=== PATIENT | male | born 1965 | race Caucasian/White ===

== ENCOUNTER 2024-07-28 01:05 | Day surgery (SDC) | payer OTHER, SELFPAY ==
[2024-07-14 15:45] VITALS: BMI 23.6
--- OUTSIDE RECORDS SUMMARY | 2024-07-28 01:08 | XMS_ITS | Clinical Summary ---
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 05/05/2022 Social History Tobacco Use Types Packs/Day Years Used Date Smoking Tobacco: Never Smokeless Tobacco: Never Alcohol Use Standard Drinks/Week Comments Yes 0 (1 standard drink = 0.6 oz pur e alcohol) socially Sex and Gender Information Value Date Recorded Sex Assigned at Not on file Legal Sex Male 4:32 PM CDT Gender Identity Not on file Sexual Orientation Not on file Last Filed Vital Signs Vital Sign Reading Time Taken Comments Blood Pressure 157/84 02/01/2021 8:02 AM CDT Pulse 99 02/01/2021 8:02 AM CDT Temperature 36.6 C (97.8 F) 02/01/2021 8:02 AM CDT Respiratory Rate 18 02/01/2021 8:02 AM CDT Oxygen Saturation 99% 02/01/2021 8:02 AM CDT Inhaled Oxygen Concentration - - Weight 77.1 kg (170 lb) 02/01/2021 8:02 AM CDT Height 175.3 cm (5' 9 ) 02/01/2021 8:02 AM CDT Body Mass Index 25.1 02/01/2021 8:02 AM CDT Plan of Treatment Health Maintenance Due Date Last Done Comments Colorectal Cancer Screening Colonoscopy (10 Years) 1963 Annual Physical 10/22/1966 Hepatitis C 10/22/1981 DTaP, Tdap and Td Vaccines ( 1 - Tdap) 10/22/1982 Pneumococcal Vaccine: 50+ Years (1 of 1 - PCV) 10/22/2013 COVID-19 Vaccine (3 - 2023-2 5 season) 2023 11/17/2020, 10/20/2020 RSV Immunization or 60+ Years (1 - 1-dose 75+ series) 10/22/2038 Zoster Vaccines Completed 12/28/2023, 08/04/2021 Meningococcal B Vaccine Aged Out No l onger eligible based on patient's age to complete this topic Meningococcal Vaccine Aged Out No cornelio ki eligible based on patient's age to complete this topic RSV Immunizations Under 20 Months Aged Out No longer eligible b ased on patient's age to complete this topic Insurance [facility] Advance Directives Documents on File Type Date Recorded Patient Physics Technician Expl anation Legal Documents 05/20/2022 3:46 PM Complet ed Supervisor Chassis Assembly Request - Andrey Danielle Legal Documents 05/08/2022 5:19 PM HB IB Ri ch Andrey Danielle [facility] Care Teams Pillow Cleaner Relationship Specialty Start Date End Date Jeanette Flood NP [address] [place] [address] [place] [address] PCP - General NURSE [facility]ACTITIONER [facility]ULT HE[facility] 02/19/24 Amilcar Philip MD ORTHOPAEDIC SURGERY 02/19/24
--- OUTSIDE RECORDS SUMMARY | 2024-07-28 01:08 | XMS_ITS | CONTINUITY OF CARE DOCUMENT ---
Author Name anastaciamarlyntrinidad valdes Address Unknown Organization [facility] Address [address] [place] [address] Phone [phone] Care Team Providers Care Settlement Worker Name Role Phone Elpidio RESENDIZ, Sridhar Unavailable NAYELY RESENDIZ, GARRET Unavailable NAYELY RESENDIZ, GARRET Unavailable INSURANCE PROVIDERS Payer name Policy type / Coverage type [place] red democrat [employer] [employer] Medicaid 1 [id number]
--- OUTSIDE RECORDS SUMMARY | 2024-07-28 01:09 | XMS_ITS | Data Portability ---
Author Organization [place] [facility], Main Office Address [address] [place] [address] Care Team Providers Care Distribution Field Technician Name Role Phone GENO BERNARD Youth Career Specialist [phone] Assessment No assessment recorded. Plan of Treatment Reminders Order Date Submit Date Provider Last Modified By Organization Details Last Modified Time Details Appointments None recorded. Lab PSA, serum or plasma 2022 023 [id number] [facility], [address] [facility], [place], [address], 3 09:23:48 lipid panel, serum 2022 023 [id number] [facility], [address] , [place], [address], 3 09:23:48 CMP, serum or plasma 2022 023 [facility], [address] , [place], [address], 3 09:23:48 Referral None recorded. Procedures None recorded. Surgeries None recorded. Imaging CT, chest, w/o contrast - *Please call pt to schedule* 2022 023 [email or web address] 256 [facility], [address] [place] [address] , [place], [address], 3 16:47:14 Medication Orders hydrocodone 10 mg-acetamin ophen 325 mg tablet 2022 023 [facility][id number], [id number], [address], 3 16:25:07 Patient TargetsNo targets recorded. Patient InstructionsNo instructions recorded. Reason for Referral None Reported. Problems Name Problem SNOMED Code Status Onset Date Resolution Date Notes Provider Name and Address Organization Details Recorded Time Benign hypertensi on 34858361 Active Not Available [facility] 3 08:46:15 Lumbar sprain 723007419 Active Not Available [facility] 3 08:46:15 Headache 98668902 Active Not Available [facility] 3 08:46:15 Depressive disorder 66307494 Active Not Available [facility] 3 08:46:15 Viral syndrome 713497803 Active Not Available [facility] 3 08:46:16 Anxiety 87384930 Active Not Available [facility] 3 08:46:16 Upper respirator y infection 76921905 Active Not Available [facility] 3 08:46:16 Hyperlipid emia 09445493 Active Not Available [facility] 3 08:46:16 Essential hypertensi on 85123334 Active Not Available [facility] 3 08:46:16 Gout 22111383 Active Not Available [facility] 3 08:46:16 Ground glass opacity Active 2022 Izabela Monae MD [address], [place], [address] , [employer] [facility] 3 16:10:26 Pain of right shoulder joint 6317374540675 9100 Active 2022 Izabela Monae MD [address], [place], [address] , [facility] 3 16:12:30 Elevated blood-pres sure reading without diagnosis of hypertensi on 799549834 Active 2022 Izabela Monae MD [address], [place], [address] , [facility] 3 16:19:39 Problem Notes None recorded. Procedures Surgical History Date Name Laterality Status Provider Name and Address Organization Details Recorded Time procedure on shoulder completed Coretta Mandel MA [place] - [facility] 02/18/2023 16:03:10 Imaging Results None recorded. Procedure Notes None recorded. Medical Equipment None Reported. Allergies Allergen ID Allergen Name Allergen Category Reaction Reaction Severity Criticality Documentation Date Start Date Code Code System Note Provider Name and Address Organization Details Recorded Time Non-stero idal anti-infl ammatory agent (product) medicatio n Not available Not available Not available 06/04/2022 15810 005 SNOMED Not Available [facility] 3 08:49:34 40933 Easprin medicatio n Not available Not available Not available 06/04/2022 4 RxNorm Not Available [facility] 3 08:49:34 Medications Name Sig Start Date Stop Date Status Note LastModified by Organization Details LastModified Time cyclobenzap rine 10 mg tablet TAKE 1 TABLET BY MOUTH THREE TIMES DAILY 05/17 completed Not Available Not Available Not Available amoxicillin 500 mg capsule active Not Available Not Available Not Available hydrocodone 7.5 mg-ibuprofe n 200 mg tablet 07/12 completed Not Available Not Available Not Available atorvastati n 20 mg tablet Take 1 tablet every day by oral route. active Not Available Not Available No t Available benzonatate 200 mg capsule TAKE 1 CAPSULE BY MOUTH THREE TIMES A DAY 02/18 completed Not Available Not Available Not Available hydrocodone 5 mg-acetamin ophen 325 mg tablet TK 1 TO 2 TS PO QHS 01/07 completed Not Available Not Available Not Available Viagra 50 mg tablet Take 1 tablet every day by oral route as needed. 07/12 completed Not Available Not Available Not Available probenecid 500 mg-colchici ne 0.5 mg tablet TAKE 1 TABLET BY MOUTH TWICE DAILY 04/16 completed Not Available Not Available Not Available acetaminoph en 300 mg-codeine 30 mg tablet TAKE 1 TO 2 TABLETS BY MOUTH EVERY 8 HOURS NEEDED active Not Available Not Available No t Available allopurinol 100 mg tablet TK 1 T PO QD 07/12 completed Not Available Not Available Not Available hydrocodone 10 mg-acetamin ophen 325 mg tablet TAKE 1 TO 2 TABLETS BY MOUTH EVERY 4 HOURS NEEDED active Not Available Not Available No t Available tramadol 50 mg tablet TAKE 1-2 TABLETS BY MOUTH EVERY 8 HOURS NEEDED 02/18 completed Not Available Not Available Not Available butalbital- acetaminoph en-caffeine 50 mg-325 mg-40 mg tablet Take 1 tablet every 4 hours by oral route. active Not Available Not Available No t Available amoxicillin 500 mg tablet Take 1 tablet 3 times a day by oral route. active Not Available Not Available No t Available cyclopentol ate 1 % eye drops ADMINISTE R 1 DROP INTO THE LEFT EYE NEEDED (FOR PAIN OVER NEXT WEEK) active Not Available Not Available No t Available oxycodone-a cetaminophe n 5 mg-325 mg tablet TAKE 1-2 BY MOUTH EVERY 4 TO 6 HOURS NEEDED active Not Available Not Available No t Available amoxicillin 875 mg tablet 07/12 completed Not Available Not Available Not Available aspirin 325 mg tablet,charly yed release TAKE 1 TABLET BY MOUTH EVERY DAY active Not Available Not Available No t Available gemfibrozil 600 mg tablet TK 1 T PO BID active Not Available Not Available No t Available cephalexin 500 mg capsule TAKE 1 CAPSULE BY MOUTH 3 TIMES A DAY UNTIL FINISHED 02/18 completed Not Available Not Available Not Available erythromyci n 5 mg/gram (0.5 %) eye ointment APPLY TO LEFT EYE 3 (THREE) TIMES A DAY FOR 7 DAYS active Not Available Not Available No t Available lisinopril 10 mg tablet 1 po daily 01/07 completed Not Available Not Available Not Available indomethaci n 25 mg capsule Take 1 capsule 3 times a day by oral route. 07/12 completed Not Available Not Available Not Available allopurinol 300 mg tablet TAKE 1 TABLET BY MOUTH EVERY DAY 2023 active Not Available Not Available Not Avai lable testosteron e cypionate 200 mg/mL intramuscul ar oil Inject 2 mL every 2 weeks by intramusc ular route. 05/17 completed Not Available Not Available Not Available methylpredn isolone 4 mg tablets in a dose pack TAKE 6 TABLETS ON DAY 1 DIRECTED ON PACKAGE AND DECREASE BY 1 TAB EACH DAY FOR A TOTAL OF 6 DAYS active Not Available Not Available No t Available albuterol sulfate HFA 90 mcg/actuati on aerosol inhaler INHALE 2 PUFFS EVERY 4 HOURS BY INHALATIO N ROUTE NEEDED active Not Available Not Available No t Available indomethaci n ER 75 mg capsule,ext ended release TK 1 C PO BID 05/19 completed Not Available Not Available Not Available naproxen 500 mg tablet TAKE 1 TABLET BY MOUTH WITH FOOD TWICE DAILY active Not Available Not Available No t Available diazepam 5 mg tablet TAKE 1 TABLET BY MOUTH EVERY 8 HOURS NEEDED active Not Available Not Available No t Available metaxalone 800 mg tablet TAKE 1 TABLET BY MOUTH THREE TIMES DAILY NEEDED FOR SHOULDER PAIN active Not Available Not Available No t Available fenofibrate nanocrystal lized 145 mg tablet Take 1 tablet every day by oral route for 30 days. 01/07 completed Not Available Not Available Not Available Colcrys 0.6 mg tablet TK 1 T PO BID active Not Available Not Available No t Available butalbital- acetaminoph en-caffeine 50 mg-300 mg-40 mg capsule TK 1 C PO Q 4 H PRN 04/16 completed Not Available Not Available Not Available Virtussin AC 10 mg-100 mg/5 mL oral liquid take 1-2 tsp every 4-6hrs prn cough active Not Available Not Available No t Available Vitals Date Recorded Body mass index (BMI) Body height Oxygen saturation Oxygen saturation in Arterial blood by Pulse oximetry Heart rate Body temperature Body weight Systolic blood pressure Diastolic blood pressure Provider Name and Address Organization Details Last Updated DateTime 2 35.5 kg/m2 152.4 cm 97 % 97 % 117 /min 98.2 [degF] 01894.8 1 g 180 mm[Hg] 98 mm[Hg] Not Available [facility] 3 08:43:48 Date Recorded Body mass index (BMI) Body height Oxygen saturation Oxygen saturation in Arterial blood by Pulse oximetry Heart rate Body temperature Body weight Systolic blood pressure Diastolic blood pressure Provider Name and Address Organization Details Last Updated DateTime 2 34.6 kg/m2 152.4 cm 97 % 97 % 91 /min 97.3 [degF] 04762.8 5 g 180 mm[Hg] 102 mm[Hg] Not Available [facility] 3 08:43:48 Date Recorded Body weight Body mass index (BMI) Body height Body temperature Heart rate Oxygen saturation Oxygen saturation in Arterial blood by Pulse oximetry Systolic blood pressure Diastolic blood pressure Provider Name and Address Organization Details Last Updated DateTime 3 45432.2 6 g 26 kg/m2 175.26 cm 98.2 [degF] 95 /min 98 % 98 % 180 mm[Hg] 102 mm[Hg] Coretta Mandel MA [facility] [employer] [facility] 16:01:08 Social History Question Answer Notes LastModified by [employer] Details LastModified Time Tobacco Smoking Status Never Smoker [facility] 02/18/2023 15:56:25 What Is Your Level Of Alcohol Consumption? Moderate [id number] Information not available 06/04/2022 What Is Your Level Of Caffeine Consumption? None [id number] Information not available 06/04/2022 How Much Tobacco Do You Chew? 1/day [id number] Information not available 06/04/2022 What Type Of Diet Are You Following? REGULAR [id number] Information not available 06/04/2022 Do You Or Have You Ever Used E-cigarettes Or Vape? Never Used Electronic Cigarettes Information not available 02/18/2023 Do You Or Have You Ever Used Smokeless Tobacco? Currently Chews Tobacco [id number] Information not available 06/04/2022 Do You Use Any Illicit Or Recreational Drugs? No Information not available 02/18/2023 Do You Or Have You Ever Used Any Other Forms Of Tobacco Or Nicotine? Yes [email or web address] Information not available 02/18/2023 How Many Days In The Past Year Have You Consumed 5 Or More Drinks? 0 [email or web address] Information no t available 02/18/2023 How Many Years Have You Used Smokeless Tobacco? 10 [id number] Information not available 06/04/2022 Sex: Unknown Functional Status Question Answer Note LastModified by [employer] Details LastModified Time What is your exercise level? Moderate [id number] Information not available 06/04/2022 Mental Status None recorded. Family History Relationship Description Onset Age of this Age Resolved Age Notes LastModified by Organization Details LastModified Time Father No current problems or disability [id number] Not available 06/04/2022 08:43:25 Mother No current problems or disability [id number] Not available 06/04/2022 08:43:25 Medical History No medical history recorded. Immunizations Vaccine Type Date Status Note Provider Nam e and Address Organization Details Recorded Time COVID-19, mRNA, LNP-S, PF, 100 mcg/0.5mL dose or 50 mcg/0.25mL dose 11/17/2020 completed Not Available [facility] 3 08:49:24 Past Encounters Encounter ID Performer Location Encounter Start Date Encounter Closed Date Diagnosis/Indication Diagnosis SNOMED-CT Code Diagnosis ICD10 Code Diagnosis Note [id number] [facility] Jayy perez [address] [place] [address] [place] [address] 05/17/2021 00:00:00 05/17/2021 16:31:01 [id number] [facility] Jayy perez [facility] [place] [address] 08/08/2021 00:00:00 08/08/2021 19:18:07 [id number] Izabela Monae MD [facility] Jayy perez [address] [place] [address] [place] [address] 02/18/2023 15:52:31 02/18/2023 16:47:09 Ground glass opacity 5207607920 R91.8 Pain of ri ght shoulder joint 3504951518 8558881 M25.511 Pain is 4/10 depends on the weather. Elevated blood-pressure reading without diagnosis of hypertension 441033884 R03.0 BP check 170/98. Watch salt in diet. Monitor BP away from here. If BP are running high needs RTC Adult heal th examination 813852377 Z00.00 Hyperlipidemia 87253709 E78.5 Screening for malignant neoplasm of prostate 332133663 Z12.5 Screening for malignant neoplasm of colon 412176089 Z12.11 Pt will call when wants this scheduled. Health Concerns Section Related Observation LastModified by Organization Detai ls LastModified Time None Recorded Concern Status LastModified by Organization Details LastModified Time None Recorded Advance Directives Directive None Recorded Payers Encounter Date Sequence Insurance Name Policy Number Policy Randolph Covered Member ID Randolph Member ID Guarantor Name 02/18/2023 1 [facility] [id number] Capo Kessler [id number] Capo Kessler Notes Date Note Type Note Provider Name and Address Organization Details Recorded Time 02/18/2023 text/html Here today for a n annual physical. Has had 2 right shoulder surgery. Here today c/o a lot of pain. Has restrictions for work. There are times when has pain. Needs something for pain.Had a CT Scan for shoulder. It showed Ground glass infiltrates and needs CT Scan of chest. Hx of coughing and was given benzonatate and albuterol.No colon cancer is aware of in fmx Izabela Monae MD [address] [facility] [address], [place], [address], [place] - [facility] [employer] [facility] [employer] 02/19/2023 08:47:20
[2024-07-28 11:34] VITALS: BP 163/97; PULSE 81; RESP 16; TEMP 36.4; O2SAT 99
[2024-07-28 11:35] VITALS: BMI 22.6
[2024-07-28] MEDS: LACTATED RINGERS 1,000 ML 150 ML IV CONT (11:42)
--- NOTE | 2024-07-28 11:48 | P.PNAN_ITS ---
Anes - Initial Pre Proc Eval Procedure: Operation Date: 07/28/24 12:30 Proposed Procedures p Screening Colonoscopy - Clifford Fletcher MD Date/Time: 07/28/24 11:48 Surgeon: Clifford Fletcher MD Pre Op Diagnosis: Screening Patient Data Age: 58 Gender: M Height: 1.75 m Weight: 69.7 kg Last Vital Signs Temp 97.6 F 07/28/24 11:34 Pulse 81 07/28/24 11:34 Resp 16 07/28/24 11:34 BP 163/97 H 07/28/24 11:34 Pulse Ox 99 07/28/24 11:34 O2 Del Method Room Air 07/28/24 11:34 Allergies Allergy/AdvReac Type Severity Reaction Status Date / Time aspirin Allergy Severe HIVES Verified 07/28/24 11:33 ibuprofen Allergy Mild HIVES Verified 07/28/24 11:33 Home Medications ?Medication ?Instructions ?Recorded ?Confirmed ?Type allopurinol 300 mg tablet 300 mg PO DAILY 07/14/24 07/28/24 History amlodipine 5 mg tablet 5 mg PO DAILY 07/14/24 07/28/24 History irbesartan 150 mg tablet 150 mg PO DAILY 07/14/24 07/28/24 History Patient hx anesthesia problems: none Family hx anesthesia problems: none Results Review: All pre-operative results and documents have been reviewed as part of the pre-operative evaluation. [facility] Social History Social History Smoking status: Never smoker Alcohol intake: current Drinks per week: 20 Substance use: current Substance use type: marijuana Living arrangements: with family Spiritual care concerns: Yes (Buddhist, no blood products) Anes - Eval Final PreProcedure Day of Procedure 07/28/24 11:48 Patient weight: normal Heart: regular rate and rhythm Lungs: clear to auscultation Airway: Mallampati scale class II Neurological: alert and oriented Last oral intake: >/= 8 hours ASA classification: II Emergent: no Anesthetic plan: proceed Anesthesia type and monitoring: general GIVS and standard monitoring Results Review: All pre-operative results and documents have been reviewed as part of the pre- operative evaluation. Informed Consent: The patient's anesthetic plan and its attendant risks and benefits were discussed with the patient/family/POA. Questions were solicited and answers provided to the satisfaction of the patient/family/POA.
--- NOTE | 2024-07-28 11:57 | P.HP_ITS ---
History of Present Illness History of Present Illness Consent: Risks, benefits, and alternatives have been discussed and questions answered. Patient agrees to proceed with procedure. Chief complaint: Screening Narrative: Capo Kessler is a 58 year old male here for first screening colonoscopy Review of Systems Review of Systems: All systems reviewed & are unremarkable except as noted in HPI and below PMFSH Past Medical History Medical History (Updated 07/28/24 @ 11:57 by Clifford Fletcher MD) Colon cancer screening Social History Social History Smoking status: Never smoker Alcohol intake: current Drinks per week: 20 Substance use: current Substance use type: marijuana Living arrangements: with family Spiritual care concerns: Yes (Synagogue, no blood products) Meds Home Medications and Allergies Home Medications ?Medication ?Instructions ?Recorded ?Confirmed ?Type allopurinol 300 mg tablet 300 mg PO DAILY 07/14/24 07/28/24 History amlodipine 5 mg tablet 5 mg PO DAILY 07/14/24 07/28/24 History irbesartan 150 mg tablet 150 mg PO DAILY 07/14/24 07/28/24 History Allergies Allergy/AdvReac Type Severity Reaction Status Date / Time aspirin Allergy Severe HIVES Verified 07/28/24 11:33 ibuprofen Allergy Mild HIVES Verified 07/28/24 11:33 Vital Signs Vital Signs - 24 hr 07/28/24 11:34 Temperature 97.6 F Pulse Rate 81 Respiratory Rate 16 Blood Pressure 163/97 H Pulse Oximetry 99 Oxygen Delivery Room Air Exam Const: General: comfortable and no acute distress HENMT: Face/Nose/Sinus: Normal nares present Eyes: General: appearance normal, both eyes and all related structures Neck: Neck: no JVD Resp: Auscultation: clear to auscultation bilaterally Cardio: Rate: regular rate Rhythm: regular rhythm GI: Inspection: non-distended GI Palp: Yes Soft to palpation Skin: General skin exam: normal color Neuro: General: gait normal Speech: normal speech Extrem: General: normal to inspection Psych: Mental Status: mental status grossly normal Assessment and Plan Assessment and plan (1) Colon cancer screening: Code(s): Z12.11 - Encounter for screening for malignant neoplasm of colon Status: Acute Assessment and Plan: colonoscopy
[2024-07-28 12:06] VITALS: BP 132/81; PULSE 87; RESP 16; O2SAT 100
[2024-07-28 12:16] VITALS: BP 138/78; PULSE 98; RESP 23; O2SAT 97
[2024-07-28 12:26] VITALS: BP 165/79; PULSE 66; RESP 20; O2SAT 100
== END 2024-07-28 12:34 | disposition home or self-care (01) ==
PROVIDERS: PCP Nurse Practitioner Adult Health; Referring Provider Nurse Practitioner Adult Health; Visit Provider Internal Medicine Gastroenterology
PROC: 0DJD8ZZ Inspection of Lower Intestinal Tract, Via Natural or Artificial Opening Endoscopic (ICD-10-PCS; CPT 45378; principal; 2024-07-28 12:30)
DX: Z12.11 Encounter for screening for malignant neoplasm of colon (principal); K64.8 Other hemorrhoids; F12.90 Cannabis use, unspecified, uncomplicated
CPT/HCPCS: 45378; J2704; J7120